=== PATIENT | male | born 1950 | race Caucasian/White ===

== ENCOUNTER 2020-04-28 09:00 | Outpatient (RCR) | payer MEDICARE, BC | END 2020-04-29 | disposition home or self-care (01) | LOC: WCC 09:00 | DX: L97.524 Non-pressure chronic ulcer of other part of left foot with necrosis of bone (principal); E11.621 Type 2 diabetes mellitus with foot ulcer; Z79.82 Long term (current) use of aspirin; Z79.899 Other long term (current) drug therapy; I11.9 Hypertensive heart disease without heart failure; I25.10 Atherosclerotic heart disease of native coronary artery without angina pectoris; E78.00 Pure hypercholesterolemia, unspecified; Z98.84 Bariatric surgery status; E78.5 Hyperlipidemia, unspecified | CPT/HCPCS: 82962; G0277; G0463 ==

== ENCOUNTER 2020-05-01 08:29 | Outpatient (RCR) | payer MEDICARE, BC | END 2020-05-29 | disposition home or self-care (01) | LOC: WCC 08:29 | DX: E11.621 Type 2 diabetes mellitus with foot ulcer (principal); L97.524 Non-pressure chronic ulcer of other part of left foot with necrosis of bone; I11.9 Hypertensive heart disease without heart failure; I25.10 Atherosclerotic heart disease of native coronary artery without angina pectoris; E78.5 Hyperlipidemia, unspecified; Z79.82 Long term (current) use of aspirin; Z79.899 Other long term (current) drug therapy | CPT/HCPCS: 82962; G0277 ==

== ENCOUNTER 2020-05-30 08:27 | Outpatient (RCR) | payer MEDICARE, BC | END 2020-06-29 | disposition home or self-care (01) | LOC: WCC 08:27 | DX: E11.621 Type 2 diabetes mellitus with foot ulcer (principal); L97.524 Non-pressure chronic ulcer of other part of left foot with necrosis of bone; I11.9 Hypertensive heart disease without heart failure; I25.10 Atherosclerotic heart disease of native coronary artery without angina pectoris; E78.5 Hyperlipidemia, unspecified; Z79.82 Long term (current) use of aspirin; Z79.899 Other long term (current) drug therapy | CPT/HCPCS: 82962; G0277; G0463 ==

== ENCOUNTER 2020-07-03 08:30 | Outpatient (RCR) | payer MEDICARE, BC | END 2020-07-30 | disposition home or self-care (01) | LOC: WCC 08:30 | DX: E11.621 Type 2 diabetes mellitus with foot ulcer (principal); L97.524 Non-pressure chronic ulcer of other part of left foot with necrosis of bone; I11.9 Hypertensive heart disease without heart failure; E78.5 Hyperlipidemia, unspecified; I25.10 Atherosclerotic heart disease of native coronary artery without angina pectoris; Z79.82 Long term (current) use of aspirin | CPT/HCPCS: 82962; G0277; G0463 ==

== ENCOUNTER 2020-07-31 08:40 | Outpatient (RCR) | payer MEDICARE, BC | END 2020-08-27 | disposition home or self-care (01) | LOC: WCC 08:40 | DX: E11.621 Type 2 diabetes mellitus with foot ulcer (principal); L97.524 Non-pressure chronic ulcer of other part of left foot with necrosis of bone; I11.9 Hypertensive heart disease without heart failure; E78.5 Hyperlipidemia, unspecified; I25.10 Atherosclerotic heart disease of native coronary artery without angina pectoris; Z79.82 Long term (current) use of aspirin | CPT/HCPCS: 82962; G0277 ==